=== PATIENT | female | born 2000 | race Caucasian/White ===

== ENCOUNTER 2022-06-20 17:37 | Emergency (ER) | payer OTHER ==
[~2022-06-20] VITALS: Ht 165.1 cm; Wt 55.9 kg
--- NOTE | 2022-06-20 18:34 | ED Head Injury ---
General Chief Complaint: Trauma-Non Activation Stated Complaint: FOREIGN BODY HIT HEAD Nursing Triage Note: Patient presents to the ED with c/o head injury, dizziness, blurred vision, and bilateral hand tingly after being hit by a foul softball. Patient reports she was sitting in the stands when a foul ball hit her in the left side of her forehead. Denies any loss of conciousness. Does report dizziness, blurred vision, and bilateral hand tingling since being hit. Patient is alert, oriented, and ambulated to room independently. History of Present Illness Date Seen by Provider: Jun 20, 2022 Time Seen by Provider: 17:44 Initial Comments 22-year-old female is brought in by her parents with complaints of a softball hitting her on the left side of her forehead while watching a softball game. Patient was sitting in the stands, and the softball hit a car and bounced off the car, and then hit her in the head. Patient states that right after she was hit, she felt slightly dizzy with momentary blurry vision that lasted about 1 minute. In the ER patient does not have any other symptoms except for mild headache. Patient was fine after that and she remained coherent and alert the entire time. Patient's parents stated that she has been having tingling in both of her upper extremities for the past few weeks even before the softball injury. Denies LOC, nausea and vomiting, confusion, dizziness, blurry vision, ringing in her ears in the ER. Location Injury Occurred: [facility] Allergies and Home Medications Allergies Coded Allergies: cefprozil (Verified Allergy, Unknown, 06/20/22) Patient Home Medication List Home Medication List Reviewed: Yes Review of Systems Review of Systems Constitutional: see HPI, other (Bruise to left side of forehead) Eyes: No Symptoms Reported Ears, Nose, Mouth, Throat: no symptoms reported Respiratory: no symptoms reported Cardiovascular: no symptoms reported Gastrointestinal: no symptoms reported Genitourinary: no symptoms reported Musculoskeletal: no symptoms reported Skin: no symptoms reported Psychiatric/Neurological: No Symptoms Reported Endocrine: No Symptoms Reported Hematologic/Lymphatic: No Symptoms Reported Past Sornilv-Hkruyy-Xqrexg Hx Patient Social History Tobacco Use?: No Use of E-Cig and/or Vaping dev: No Substance use?: No Alcohol Use?: No Pt feels they are or have been: No Immunizations Up To Date First/Initial COVID19 Vaccinat: Denies Past Medical History Surgery/Hospitalization HX: Denies Physical Exam Vital Signs Vital Signs - First Documented 06/20/22 17:40 Temp 37.2 Pulse 97 Resp 16 B/P (MAP) 118/67 (84) Pulse Ox 98 O2 Delivery Room Air Capillary Refill : Less Than 3 Seconds Height, Weight, BMI Height: '" Weight: lbs. oz. kg; 20.00 BMI Method: General Appearance: WD/WN, no apparent distress HEENT: PERRL/EOMI, normal ENT inspection Neck: non-tender, full range of motion, supple, normal inspection Extremities: normal range of motion, normal inspection Psychiatric: alert, oriented x 3 Crainal Nerves: normal hearing, normal speech, PERRL Coordination/Gait: normal gait Motor/Sensory: no motor deficit, no sensory deficit Skin: normal color, other (Bruising to the left side of her forehead) Hutchinson Coma Score Best Eye Response: (4) Open Spontaneously Best Verbal Response: (5) Oriented Best Motor Response: (6) Obeys Commands Hutchinson Total: 15 Progress/Results/Core Measures Results/Orders Vital Signs/I&O 06/20/22 17:40 Temp 37.2 Pulse 97 Resp 16 B/P (MAP) 118/67 (84) Pulse Ox 98 O2 Delivery Room Air Blood Pressure Mean: 84 Progress Progress Note : Progress Note 1. BLUNT INJURY FROM SOFTBALL, SECONDARY HIT: -Patient is a GCS of 15. Patient is asymptomatic in the ER with only a mild headache, stable vitals, alert and oriented x3 with normal Clinical exam. Will not need CT head at this time. Also the velocity of the ball with decreased at the time that it hit her since it initial impact was on a car before it bounced off and hit the patient. -Concussion precautions given -Patient was monitored in the ER for an hour, in which she did not develop any worsening symptoms. -Advised adequate hydration -Follow-up with PCP within the next 3 days -Tylenol as needed for headache -The patient was seen in the ED, and treated appropriately to presentation at a specific point in time. Patient is informed that there is a possibility that disease and illness can evolve and change in acuity rapidly or slowly after patient is discharged from the ER. Precautionary advice given to the patient for immediate return to ER if symptoms worsen or do not resolve, and to seek emergency care sooner rather than later. Pt also advised on the importance of PCP follow up and compliance with management and follow up plan with PCP and/or specialist, as this is part of the management plan. Pt verbally expressed understanding. Departure Impression Primary Impression: Struck by softball, initial encounter Additional Impression: Forehead contusion Qualified Codes: S00.83XA - Contusion of other part of head, initial encounter Disposition: HOME, SELF-CARE Condition: Stable Departure-Patient Inst. Referrals: MARLENY CARR MD (PCP/Family) Primary Care Physician Patient Instructions: Minor Contusion ED, Concussion, Children and Adolescents (DC) Add. Discharge Instructions: -Concussion precautions given -Advised adequate hydration -Follow-up with PCP within the next 3 days -Tylenol as needed for headache -Advised ice application -Return to ER if any worsening symptoms develop All discharge instructions reviewed with patient and/or family. Voiced understanding. Work/School Note: School/Childcare Release Date Seen in the Emergency Department: Jun 20, 2022 Time Dismissed from Emergency Department: 18:40 Return to School: Jun 23, 2022 Restrictions: No PE-Until Released, No Sports-Until Released, Need Release from Doctor KATIE Mc MD Jun 20, 2022 18:33
[2022-06-20 18:38] VITALS: BP 118/67
== END 2022-06-20 18:38 | disposition home or self-care (01) ==
LOC: ER FS 17:38
DX: S00.83XA Contusion of other part of head, initial encounter (principal); Z28.310 Unvaccinated for COVID-19; W21.07XA Struck by softball, initial encounter; Y92.89 Other specified places as the place of occurrence of the external cause
CPT/HCPCS: 99283